=== PATIENT | male | born 1980 | race African-American/Black ===

== ENCOUNTER 2019-02-23 20:20 | Outpatient (CLI) | payer OTHER ==
[2019-02-23 12:02] LABS: BASOPHILS % (AUTO) 0.8 %; EOSINOPHILS # (AUTO) 0.2 10^3/uL (0.0-0.7); EOSINOPHILS % (AUTO) 4.1 %; HGB - HEMOGLOBIN 14.1 g/dL (14.0-18.0); LYMPHOCYTES # (AUTO) 1.8 10^3/uL (1.5-3.5); LYMPHOCYTES % (AUTO) 48.6 %; MEAN CORPUSCULAR HEMOGLOBIN 28.5 pg (27.0-31.0); MEAN CORPUSCULAR HGB CONC 32.8 g/dL (32.0-36.0); MEAN CORPUSCULAR VOLUME 86.9 fL (80.0-94.0); MEAN PLATELET VOLUME 12.1 fL (7.4-11.4); MONOCYTES # (AUTO) 0.4 10^3/uL (0.0-1.0); MONOCYTES % (AUTO) 10.2 %; NEUTROPHILS # (AUTO) 1.3 10^3/uL (1.5-6.6); PLT - PLATELET COUNT 115 10^3/uL (130-450); RED BLOOD COUNT 4.95 10^6/uL (4.70-6.10); RED CELL DISTRIBUTION WIDTH 13.4 % (12.0-15.0); WHITE BLOOD COUNT 3.6 x10^3/uL (4.8-10.8)
[2019-02-23 13:22] LABS: ALBUMIN 4.1 g/dL (3.2-5.5); ALBUMIN/GLOBULIN RATIO 1.4 (1.0-2.2); ALKALINE PHOSPHATASE 70 IU/L (42-121); ALT ALANINE AMINOTRANSFERASE 28 IU/L (10-60); AST ASPARTATE AMINOTRANSFERASE 19 IU/L (10-42); BILIRUBIN,TOTAL 0.5 mg/dL (0.2-1.0); BUN - BLOOD UREA NITROGEN 17 mg/dL (6-20); CALCIUM 9.4 mg/dL (8.5-10.3); CARBON DIOXIDE - CO2 29 mmol/L (21-32); CHLORIDE 106 mmol/L (101-111); CHOL/HDL RATIO 3.9 (<5.0); CHOLESTEROL 142 mg/dL; CREATININE 1.2 mg/dL (0.6-1.2); GFR - MDRD 83 (>89); GLUCOSE 97 mg/dL (70-100); HDL CHOLESTEROL 36 mg/dL; LDL CHOLESTEROL,CALCULATED 89 mg/dL; LDL/HDL RATIO 2.5 (<3.6); SODIUM 141 mmol/L (135-145); VLDL CHOLESTEROL 17 mg/dL
== END 2019-02-23 23:59 | disposition home or self-care (01) ==
LOC: LAB.N 20:20
PROVIDERS: ATTEND Nurse Practitioner Gerontology
DX: Z00.00 Encounter for general adult medical examination without abnormal findings (principal); K76.0 Fatty (change of) liver, not elsewhere classified
CPT/HCPCS: 36415; 80053; 80061; 83721; 84443; 85025

== ENCOUNTER 2019-07-10 16:29 | Outpatient (CLI) | payer OTHER ==
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
== END 2019-07-10 16:30 | disposition home or self-care (01) ==
LOC: SC 16:29
PROVIDERS: ATTEND Internal Medicine Pulmonary Disease
DX: G47.10 Hypersomnia, unspecified (principal); R06.83 Snoring; R53.83 Other fatigue; G47.8 Other sleep disorders; R06.81 Apnea, not elsewhere classified; G47.50 Parasomnia, unspecified; E66.9 Obesity, unspecified; Z68.33 Body mass index [BMI] 33.0-33.9, adult

== ENCOUNTER 2019-08-10 20:59 | Outpatient (CLI) | payer OTHER | END 2019-08-10 21:00 | disposition home or self-care (01) | LOC: SC 20:59 | PROVIDERS: ATTEND Internal Medicine Pulmonary Disease | DX: G47.33 Obstructive sleep apnea (adult) (pediatric) (principal); E66.9 Obesity, unspecified; Z68.35 Body mass index [BMI] 35.0-35.9, adult | CPT/HCPCS: 95810 ==

== ENCOUNTER 2019-08-16 13:21 | Outpatient (CLI) | payer OTHER ==
[2019-08-16 14:16] VITALS: BP 118/64
--- NOTE | 2019-08-16 14:16 | SLEEP CARE CONSULTATION ---
Information from patient questionnaire entered by Amaya Del Toro. I have reviewed and concur with the information entered by Amaya Del Toro. This document represents the service I personally performed and the decisions made by me, Allyson Rodriguez, RN, MSN, [employer]. History of Present Illness Service Date and Time: 08/16/2019 1321 Initial [place] Sleepiness Scale score: 17 (in 2020) Current Harper Sleepiness Scale score: 19 Additional HPI information: SUSI CONTRERAS returns for follow up and results of the recently performed polysomnography. I explained the pathophysiology behind obstructive sleep apnea. We then spent quite a bit of time discussing different treatment options. For mild obstructive sleep apnea, surgery and oral appliance are alternatives to nasal CPAP therapy but in moderate or severe cases, nasal CPAP is the most effective and reliable treatment. Because apnea is primarily in supine position, then positional management therapy could be effective. Methods discussed such as positioning with pillows, using a T-shirt with tennis balls in the back, and shown commercial products that have a pillow format on back to prevent supine sleep. I reviewed the impact of weight changes on sleep apnea and strongly recommended losing weight. After some discussion, the patient opted to go with the nasal CPAP therapy. Nasal autoCPAP set at [id number] will be ordered with rationale explained. A manual titration study will be ordered if unable to find optimal pressure with office adjustments. I explained how CPAP machine works with sample devices Respironics Dreamstation and Res24/7 Card [id number] and what to expect when using the machine. Using CPAP every night in order to get used to it was emphasized. Patient advised to put CPAP mask on before getting into bed so as not to fall asleep without CPAP. To assist acclimation to CPAP use, it could also be used for a short time during day while reading or watching TV. The patient was instructed to call the CPAP supplier to discuss any mechanical problem that may occur. If the mask given is uncomfortable or is difficult to keep on through the night even with adjustment, contact the CPAP supplier as many will replace with another mask style if notifi ed before 30 days. If snoring or perceives is not getting enough air or too much air from the machine, notify this office. [facility] patient education PAP tips reviewed and given to patient. Patient counseled not drink alcohol less than 4 hours before bedtime as it can increase snoring and apnea. Patient was cautioned about risks of drowsy driving until sleepiness symptoms resolve. [facility] patient education on snoring and sleep apnea given and reviewed. Sleep Study - Results Polysomnography/Home Sleep Study results: The quality of the study is good. The patient had normal sleep efficiency. Except for mild sleep fragmentation, the sleep architecture was normal. Respiratory monitoring showed mild obstructive sleep apneahypopnea (AHI = 14.7) associated with frequent arousals, oxyhemoglobin desaturation and moderate hypoxia (rochelle oxygen saturation of 78%). The respiratory events occurred more frequently during supine sleep (supine AHI = 28.2; non-supine = 9.92). Snore was loud in intensity. There was no significant periodic leg movement of sleep. Cardiac rhythm was normal sinus rhythm without significant arrhythmia. No abnormal behavior (parasomnia) observed during the night. Allergies and Home Medications Known drug allergies: Yes (keflex, hydrocodone ) Home medication list reviewed: No (no medications) Review of Systems Review of systems same as previous: Yes Physical Exam Blood Pressure: 118/64 Cuff size: large Heart Rate: 77 O2 Saturation: 95 Height: 6 ft 2 in Weight: 280 lb Body Mass Index: 35.9 BMI Classification: Obese Impression and Plan 1. Obstructive Sleep Apnea-Hypopnea Syndrome, mild, with lowest oxygen saturation of 78%. Obviously this is the cause of the patients symptoms of unrefreshed sleep, and excessive daytime sleepiness. As mentioned above, the patient will be started on nasal autoCPAP therapy with pressure set at 4-15 cmH2 O. A manual titration study will be completed if unable to find optimal treatment pressure with office adjustments. Compliance guidelines also reviewed. A copy of compliance guidelines will be given for reference at check out. Because the apnea is more severe supine, I instructed to avoid sleeping supine using pillow positioning until able to start CPAP use. * Nasal auto CPAP therapy, pressure at 4-15 cm H2O. * Attempt to lose weight. * Avoid alcohol consumption near bedtime. * Avoid supine sleep until using CPAP. * The patient is again cautioned about driving until sleepiness completely resolves. * Return one month after CPAP obtained. I will assess response to therapy and compliance at that time. Visit Type: In Office Time Spent with Patient (minutes): 35 Provider Statement: I spent 100% of the Face to Face Visit with the patient with greater than 50% spent counseling the patient and coordination of care.
== END 2019-08-16 13:22 | disposition home or self-care (01) ==
LOC: SC 13:21
PROVIDERS: ATTEND Nurse Practitioner Family
DX: G47.33 Obstructive sleep apnea (adult) (pediatric) (principal); E66.9 Obesity, unspecified; Z68.35 Body mass index [BMI] 35.0-35.9, adult
CPT/HCPCS: 99212; 99214

== ENCOUNTER 2019-09-26 08:00 | Outpatient (CLI) | payer OTHER ==
[2019-09-26 18:59] LABS: CALCIUM 9.4 mg/dL (8.5-10.3); CREATININE 1.1 mg/dL (0.6-1.2); EOSINOPHILS # (AUTO) 0.2 10^3/uL (0.0-0.7); EOSINOPHILS % (AUTO) 3.7 %; HGB - HEMOGLOBIN 14.1 g/dL (14.0-18.0); LYMPHOCYTES % (AUTO) 49.3 %; MEAN CORPUSCULAR HEMOGLOBIN 29.1 pg (27.0-31.0); MEAN CORPUSCULAR HGB CONC 33.7 g/dL (32.0-36.0); MEAN CORPUSCULAR VOLUME 86.4 fL (80.0-94.0); MEAN PLATELET VOLUME 13.6 fL (7.4-11.4); MONOCYTES # (AUTO) 0.4 10^3/uL (0.0-1.0); MONOCYTES % (AUTO) 9.4 %; NEUTROPHILS # (AUTO) 1.5 10^3/uL (1.5-6.6); NEUTROPHILS % (AUTO) 36.6 %; PLT - PLATELET COUNT 129 10^3/uL (130-450); RED BLOOD COUNT 4.85 10^6/uL (4.70-6.10); RED CELL DISTRIBUTION WIDTH 13.7 % (12.0-15.0); WHITE BLOOD COUNT 4.1 x10^3/uL (4.8-10.8)
== END 2019-09-26 23:59 | disposition home or self-care (01) ==
LOC: LAB.WCP 08:00
PROVIDERS: ATTEND Family Medicine
DX: D72.819 Decreased white blood cell count, unspecified (principal); R94.4 Abnormal results of kidney function studies
CPT/HCPCS: 36415; 80048; 85025

== ENCOUNTER 2019-10-05 22:43 | Outpatient (CLI) | payer BC, OTHER ==
--- NOTE | 2019-10-06 11:01 | Ultrasound Report ---
PROCEDURE: Duplex Ext Veins Left INDICATIONS: REPETITIVE STRAIN INJURY OF LEFT ARM TECHNIQUE: Real-time imaging, as well as color and pulse Doppler interrogation, were performed of the lower extr emity deep veins from the inguinal ligament to the popliteal fossa. COMPARISON: None. FINDINGS: The deep veins are normally compressible, and free of intraluminal thrombus. Color and pu lse Doppler demonstrate normal phasic intraluminal flow. There is normal augmentation response to di stal compression maneuver. IMPRESSION: No findings of deep venous thrombosis are seen. Note: No significant discrepancy from the preliminary report. Reviewed by: David Cochran MD on 10/06/2019 10:00 AM [facility] Approved by: David Cochran MD on 10/06/2019 10:00 AM [facility] Station ID: [id number]
== END 2019-10-05 22:44 | disposition home or self-care (01) ==
LOC: DI 22:43
PROVIDERS: ATTEND Family Medicine
DX: M70.922 Unspecified soft tissue disorder related to use, overuse and pressure, left upper arm (principal)

== ENCOUNTER 2019-11-16 17:14 | Outpatient (CLI) | payer BC, OTHER ==
--- NOTE | 2019-11-17 18:16 | Ultrasound Report ---
PROCEDURE: Pelvic Limited or F/U INDICATIONS: HX OF INGUINAL HERNIA TECHNIQUE: Real-time transabdominal scanning was performed of the groin with and without Valsalva maneuver, with image documentation. COMPARISON: None. FINDINGS: On the left side, no hernia is appreciated. Normal-appearing lymph nodes are incidentally captured in the image field. No solid mass or abnormal fluid collection on the left. On the right side, a fat-containing sliding reducible hernia is present. Fascial defect appears to me asure up to at least 5 mm. IMPRESSION: Fat-containing reducible right inguinal hernia. No evident hernia on the left. Reviewed by: Josh Lopez on 11/17/2019 5:15 PM [facility] Approved by: Josh Lopez on 11/17/2019 5:15 PM [facility] Station ID: [id number]
== END 2019-11-16 17:15 | disposition home or self-care (01) ==
LOC: DI 17:14
PROVIDERS: ATTEND Nurse Practitioner Family
DX: K40.90 Unilateral inguinal hernia, without obstruction or gangrene, not specified as recurrent (principal)
CPT/HCPCS: 76857

== ENCOUNTER 2019-11-22 15:58 | Outpatient (CLI) | payer OTHER, BC ==
[2019-11-22 17:07] VITALS: BP 130/80
--- NOTE | 2019-11-22 17:07 | SLEEP CARE CONSULTATION ---
Information from patient questionnaire entered by Amaya Del Toro. I have reviewed and concur with the information entered by Amaya Del Toro. This document represents the service I personally performed and the decisions made by me, Allyson Rodriguez, RN, MSN, [employer]END[employer]. History of Present Illness Service Date and Time: 11/22/2019 1558 Previous diagnosis: Mild, Obstructive Sleep Apnea-Hypopnea Syndrome AHI: 14.7 (in 2019) Reason for follow up: first compliance Equipment type: CPAP [facility] Mask style: Nasal pillows Backup mask available: Yes (spare mask ) Last cushion change: no supplies since set up Prior sleep studies: Yes Year and Where: 2000 - [place], [place] and 2019 [facility] Sleep Sleep Study - Results Prior sleep studies: Yes Year and Where: 2000 - [place], [place] CPAP Compliance Data - Data Reviewed with Patient Average duration of nightly device use: 4.8 Compliance rate %: 70 Current pressure setting (cmH2O): 4-20 Humidity settin Heated hose setting: no Average residual AHI: 0.5 Average large leak: zero Subjective Patient concerns: reports: condensation in mask/hose (gurlging in hose after he adjusted his humdity to reduce nasal dryness so reduced humidity and still condensation), nasal congestion (just residual from recent cold ), dry mouth, nose, throat (some initial dryness of nostrils and placed some coconut oil in nostrils with some relief ), other (falling asleep watching TV in bed about 4 times / waking with mask off face a few times. f ). denies: aerophagia, mask discomfort, air blowing in eyes, mask leak noise, epistaxis Observed to snore while using device: No Current pressure setting perceived as: comfortable On therapy, patient: reports: sleeping better, awakening more refreshed (but is tired during the day - patient does not allow for enough sleep most days due to activities of life). denies: drowsiness while driving Initial [place] Sleepiness Scale score: 17 (in 2019) Current [place] Sleepiness Scale score: 18 Allergies and Home Medications Known drug allergies: No Home medication list reviewed: No (no medications) Review of Systems Review of systems same as previous: No (umbilical hernia ) Physical Exam Blood Pressure: 130/80 Cuff size: long Heart Rate: 79 O2 Saturation: 98 Height: 6 ft 2 in Weight: 275 lb 12.8 oz Weight change since last visit: lost 4.2 pounds Body Mass Index: 35.4 BMI Classification: Obese Impression and Plan 1. Obstructive Sleep Apnea-Hypopnea Syndrome, moderate, with good treatment compliance and good apnea control. On CPAP therapy, the patient has better sleep quality and is more refreshed but is fatigued during the day. Further discussion reflected he is not getting sufficient sleep most days due to timing of evening activities. In addition, he has had a few nights where he fell asleep without CPAP. To prevent falling asleep without CPAP while watching TV in bed, he is either to set his phone alarm for his bedtime or he can watch his TV with mask on. Insufficient sleep. Patient averages 4.5 hours of sleep nightly . Most people require 7-9 hours of sleep for optimal mental and physical function. Less than 5-6 hours of sleep consistently can contribute to health risks and mortality. Thus patient is advised to strive for a minimum of 7 hours of sleep. Methods discussed how patient can achieve within their lifestyle and advised to discuss with his spouse. He is also advised of importance of a regular sleep schedule and relaxing bedtime ritual before bed as shown in [facility] How to sleep better pamphlet given. Nasal dryness and nasal congestion can be reduced with increasing the CPAP humidity as shown on sample device and the heated hose can be increased if condensation. In addition, I gave the patient a few samples of Whit Ease nasal cream to be used 4 times a day for 7-10 days and then as needed. Patient has lost weight. Currently patients BMI is 35.9 obesity class . Obesity increases the risk of apnea, CPAP pressure requirements and overall health risks especially cardiovascular and diabetes. Thus patient is advised to continue to lose weight. Weight loss can be done with reducing portion size, reducing refined foods and balancing content with vegetables, fruit and protein. In addition tracking food intake will allow awareness of how to modify diet to achieve weight loss goals. Also eating more slowly will allow more awareness of food intake and enjoyment of food while assisting patient to modify intake at each meal. A diet consultation can be helpful in achieving optimal weight loss goals. The BMI chart was reviewed. The patient would like to reduce to 60 pounds bringing their BMI down to about 27. Patient encouraged to discuss their weight loss goals with their PCP and consider a referral to a hydramatic mechanic. The patient's CPAP pressure range should accommodate some weight loss. Symptoms to report for additional pressure adjustment discussed. Patient's apnea severity and rationale for treatment to reduce apnea, improve sleep quality and reduce cardiovascular and cerebrovascular events was reviewed. For impending surgery, patient advised to take his CPAP for use post operatively. Since patient has more severe apnea in supine position, patient advised to avoid supine sleep with pillow positioning if unable to use CPAP while ill or if without electricity to reduce apnea risk. * Changeauto CPAP pressure to 4-12 cmH2O * Implement methods to reduce nasal dryness * Strive for more sleep * cautioned about risks of drowsy driving until sleepiness symptoms resolve * Notify me if snoring with mask or feeling that the pressure is too much or too little * Attempt to lose weight * Call this office if any problems using CPAP * Return for follow up in 3 months , or sooner if concerns arise Counseling Topics: Weight loss health impact, Discuss weight with PCP Visit Type: In Office Time Spent with Patient (minutes): 45 Provider Statement: I spent 100% of the Face to Face Visit with the patient with greater than 50% spent counseling the patient and coordination of care.
== END 2019-11-22 15:59 | disposition home or self-care (01) ==
LOC: SC 15:58
PROVIDERS: ATTEND Nurse Practitioner Family
DX: G47.33 Obstructive sleep apnea (adult) (pediatric) (principal); E66.9 Obesity, unspecified; Z68.35 Body mass index [BMI] 35.0-35.9, adult
CPT/HCPCS: 99212; 99215

== ENCOUNTER 2020-02-21 15:31 | Outpatient (CLI) | payer OTHER ==
--- NOTE | 2020-02-21 16:16 | SLEEP CARE CONSULTATION ---
Information from patient questionnaire entered by Dimitri Carter. I have reviewed and concur with the information entered by Dimitri Carter. This document represents the service I personally performed and the decisions made by me, Ramona Chavez ARNP. History of Present Illness Service Date and Time: 02/21/2020 1531 Previous diagnosis: Mild, Obstructive Sleep Apnea-Hypopnea Syndrome AHI: 14.7 Reason for follow up: three month (Followup - pressure change) Equipment type: CPAP [facility] getting [facility] but nothing recently; needs to call) Mask style: Nasal pillows Backup mask available: No (keep mask when replaced for a back up) Last cushion change: 1 month Prior sleep studies: Yes Year and Where: 2019 [facility] and 2000 - [facility] additional information: SUSI CONTRERAS was diagnosed to have mild, AHI 14.7, obstructive sleep apnea- hypopnea syndrome and returned today for CPAP therapy three month pressure change follow-up. CPAP Compliance Data - Data Reviewed with Patient Average duration of nightly device use: 4 hours 41 minutes Compliance rate %: 57 Current pressure setting (cmH2O): 4-20 Average residual AHI: 0.4 Central apnea: 0.1 Obstructive apnea: 0.2 Average large leak: 6.3 L/min Subjective Missed days of use due to: reports: other (changes of work schedule) Patient concerns: reports: mask discomfort, dry mouth, nose, throat (dry throat). denies: aerophagia, air blowing in eyes, mask leak noise, condensation in mask/hose, nasal congestion, epistaxis, other Observed to snore while using device: No Current pressure setting perceived as: comfortable On therapy, patient: reports: sleeping better, awakening more refreshed, being more awake and alert during the day (still gets sleepiness throughout the day but averages under 5 hours of sleep a night), more rested overall, drowsiness while driving (no getting 7-9 hours of sleep) Initial [place] Sleepiness Scale score: 17 (in 2019) Current [place] Sleepiness Scale score: 20 Allergies and Home Medications Drug allergies reviewed: Yes (hydrocodone, Keflex) Home medication list reviewed: Yes (no changes) Review of Systems Review of systems same as previous: Yes (no changes) Physical Exam Heart Rate: 68 O2 Saturation: 97 Height: 6 ft 2 in Weight: 282 lb Body Mass Index: 36.1 BMI Classification: Obese Impression and Plan 1. Obstructive Sleep Apnea-Hypopnea Syndrome, mild, with fair treatment compliance and excellent apnea control. On CPAP therapy, the patient has better sleep quality but he continues to be very sleepy during the daytime since he is averaging less than 5 hours nightly. He does get more sleep on the weekends but he is not able to get more than 4.5 to 5 hours of sleep on work days. He has been trying to change his nightly routine to be able to get better sleep. He starts getting ready to sleep about 10 PM but does not go to sleep until midnight. I advised him to try to begin getting ready for sleep earlier in the night. He can start in 15 minute increments to try to get to sleep sooner. He is also to look at ways to reduce time needed to get to the bed. He states he will try this and voiced understanding of importance of getting more sleep as well as quality sleep to reduce health and safety risks. He also still has some throat dryness. He has not been able to obtain a heated hose and must keep his humidity setting down or he has problems with condensation. [facility] the [facility] so he may increase his humidity and reduce oral dryness. Oral dryness can be reduced by adjusting humidity setting higher or heated hose lower or by adjusting both settings. Patient advised that chronic oral dryness can affect dental health. At his last visit, his pressure was supposed to get changed but the machine was not adjusted at that time. I will write for another adjustment to 4-10 cmH2O on his APAP to reflect the pressures he is currently using with excellent control of his apnea. Patient's apnea severity and rationale for treatment to reduce apnea, improve sleep quality and reduce cardiovascular and cerebrovascular events was reviewed. * Change autoCPAP pressure to 4-10 cmH2O * Notify me if snoring with mask or feeling that the pressure is too much or too little * Call this office if any problems using CPAP * Return for follow up in 1-2 months, or sooner if concerns arise Counseling Topics: Spare mask Visit Type: In Office Time Spent with Patient (minutes): 28 Provider Statement: I spent 100% of the Face to Face Visit with the patient with greater than 50% spent counseling the patient and coordination of care.
== END 2020-02-21 15:32 | disposition home or self-care (01) ==
LOC: SC 15:31
PROVIDERS: ATTEND Nurse Practitioner Family
DX: G47.33 Obstructive sleep apnea (adult) (pediatric) (principal); E66.9 Obesity, unspecified; Z68.36 Body mass index [BMI] 36.0-36.9, adult
CPT/HCPCS: 99212; 99213

== ENCOUNTER 2020-06-27 13:22 | Outpatient (CLI) | payer OTHER ==
--- NOTE | 2020-06-27 13:54 | SLEEP CARE CONSULTATION ---
Information from patient questionnaire entered by Amaya Del Toro. I have reviewed and concur with the information entered by Amaya Del Toro. This document represents the service I personally performed and the decisions made by , Ramona Chavez ARNP. History of Present Illness Service Date and Time: 06/27/2020 1322 Previous diagnosis: Mild, Obstructive Sleep Apnea-Hypopnea Syndrome AHI: 14.7 (in 2019) Reason for follow up: other (4 month with pressure change) Equipment type: CPAP Equipment obtained from: Other (ID; hasn't got any new supplies yet, will call them) Mask style: Nasal pillows Backup mask available: Yes (other mask) Last cushion change: several months Prior sleep studies: Yes Year and Where: 2019 - [facility]; [address] [place], [place] Type of Sleep Study: Polysomnography HPI additional information: SUSI CONTRERAS was diagnosed to have mild, AHI 14.7, obstructive sleep apnea- hypopnea syndrome and returned today for CPAP therapy 4 month pressure change follow-up. CPAP Compliance Data - Data Reviewed with Patient Average duration of nightly device use: 4 hr Compliance rate %: 37 (90 days) Current pressure setting (cmH2O): 4-10 Average residual AHI: 0.4 Subjective Missed days of use due to: reports: other (falling asleep on the couch) Patient concerns: reports: dry mouth, nose, throat. denies: aerophagia, mask discomfort, air blowing in eyes, mask leak noise, condensation in mask/hose, nasal congestion, epistaxis, other Observed to snore while using device: No Current pressure setting perceived as: comfortable On therapy, patient: reports: sleeping better, awakening more refreshed, being more awake and alert during the day, more rested overall. denies: drowsiness while driving Initial [place] Sleepiness Scale score: 17 (in 2020) Current [place] Sleepiness Scale score: 18 Allergies and Home Medications Home medication list reviewed: Yes (no changes) Review of Systems Review of systems same as previous: Yes (no changes) Physical Exam Heart Rate: 64 O2 Saturation: 98 Height: 6 ft 2 in Weight: 290 lb Body Mass Index: 37.2 BMI Classification: Obese Impression and Plan 1. Obstructive Sleep Apnea-Hypopnea Syndrome, mild, with poor treatment compliance and good apnea control. On CPAP therapy, the patient has better sleep quality and is more rested overall. He has been working days and finding it hard to get more hours of sleep. He will be changing to nights at the first of July and he thinks he will be able to get more sleep and use the CPAP more. He has fallen asleep on the couch too while watching TV. Compliance guidelines reviewed for insurance coverage. Patient was counseled on the difference between meeting compliance and optimal use of CPAP. Optimal use of CPAP is use of CPAP with all sleep to obtain maximum benefit of treatment. To prevent falling asleep without CPAP, patient advised to set a bedtime alarm on their phone for use while watching TV on couch or in bed. Patient was compliant at first compliant visit but has not reached it since. I advised him to continue to try to get more sleep. He has still been having some mouth dryness with his humidity up at 5. He is still waiting to get the heated hose so he may increase the humidity some more because he gets condensation in tubing if he goes up higher. I will have hime come in to recheck compliance in about 3 months. Patient's apnea severity and rationale for treatment to reduce apnea, improve sleep quality and reduce cardiovascular and cerebrovascular events was reviewed. * Continue auto CPAP pressure at 4-10 cmH2O * Notify me if snoring with mask or feeling that the pressure is too much or too little * Attempt to lose weight * Call this office if any problems using CPAP * Return for follow up in 3 months, or sooner if concerns arise Counseling Topics: Spare mask, Weight loss health impact Visit Type: In Office Time Spent with Patient (minutes): 23 Provider Statement: I spent 100% of the Face to Face Visit with the patient with greater than 50% spent counseling the patient and coordination of care.
== END 2020-06-27 13:23 | disposition home or self-care (01) ==
LOC: SC 13:22
PROVIDERS: ATTEND Nurse Practitioner Family
DX: G47.33 Obstructive sleep apnea (adult) (pediatric) (principal); E66.9 Obesity, unspecified; Z68.37 Body mass index [BMI] 37.0-37.9, adult
CPT/HCPCS: 99212; 99213

== ENCOUNTER 2020-10-09 13:52 | Outpatient (CLI) | payer OTHER ==
--- NOTE | 2020-10-09 14:18 | SLEEP CARE CONSULTATION ---
Information from patient questionnaire entered by Amaya Del Toro. I have reviewed and concur with the information entered by Amaya Del Toro. This document represents the service I personally performed and the decisions made by me, Ramona Chavez ARNP. History of Present Illness Service Date and Time: 10/09/2020 1352 Previous diagnosis: Mild, Obstructive Sleep Apnea-Hypopnea Syndrome AHI: 14.7 (in 2019) Reason for follow up: three month Equipment type: CPAP Equipment obtained [facility]: [facility]; will need to call to get them) Mask style: Nasal pillows Backup mask available: Yes (old mask) Last cushion change: 2 months ago Prior sleep studies: Yes Year and Where: 2019 - [facility]; [address] - [place], [place] Type of Sleep Study: Polysomnography HPI additional information: SUSI CONTRERAS was diagnosed to have mild, AHI 14.7, obstructive sleep apnea- hypopnea syndrome and returned today for CPAP therapy three month follow-up. CPAP Compliance Data - Data Reviewed with Patient Average duration of nightly device use: 4 hr Compliance rate %: 46 (90 days) Current pressure setting (cmH2O): 4-10 Average residual AHI: 0.8 Subjective Missed days of use due to: reports: other (dozed off before putting on the mask) Patient concerns: reports: mask leak noise (just a little bit, better with adjustment), other (mask straps are worn and stretched out). denies: aerophagia, mask discomfort, air blowing in eyes, condensation in mask/hose, nasal congestion, dry mouth, nose, throat, epistaxis Observed to snore while using device: No Current pressure setting perceived as: comfortable On therapy, patient: reports: sleeping better, awakening more refreshed, being more awake and alert during the day, more rested overall. denies: drowsiness while driving Initial [place] Sleepiness Scale score: 17 (in 2020) Current [place] Sleepiness Scale score: 18 Allergies and Home Medications Home medication list reviewed: Yes (no changes) Review of Systems Review of systems same as previous: Yes (no changes) Physical Exam Heart Rate: 71 O2 Saturation: 97 Height: 6 ft 2 in Weight: 281 lb Body Mass Index: 36.1 BMI Classification: Obese Impression and Plan 1. Obstructive Sleep Apnea-Hypopnea Syndrome, mild, with poor treatment compliance and excellent apnea control. On CPAP therapy, the patient has better sleep quality and is more rested overall. He is sleeping longer with the mask on but still having difficulty with compliance. He will wake up and find he forgot to put the mask on. He is seeing benefit and intends to continue using the CPAP machine. He states his headgear is getting very stretched out. [facility] but he has not received any. I advised him to reach out again and to keep calling until he receives his supplies since this is affecting his CPAP use/treatment. He voice understanding and agreement with plan. I will have him come back in a couple months to recheck his compliance. Patient's apnea severity and rationale for treatment to reduce apnea, improve sleep quality and reduce cardiovascular and cerebrovascular events was reviewed. Patient was encouraged to try to lose weight to reduce apneas and improve overall health. * Continue auto CPAP pressure at 4-10 cmH2O * Contact DME for supplies * Notify me if snoring with mask or feeling that the pressure is too much or too little * Attempt to lose weight * Call this office if any problems using CPAP * Return for follow up in 3 months, or sooner if concerns arise Counseling Topics: Spare mask, Weight loss health impact Visit Type: In Office Time Spent with Patient (minutes): 19 Provider Statement: I spent 100% of the Face to Face Visit with the patient with greater than 50% spent counseling the patient and coordination of care.
== END 2020-10-09 13:53 | disposition home or self-care (01) ==
LOC: SC 13:52
PROVIDERS: ATTEND Nurse Practitioner Family
DX: G47.33 Obstructive sleep apnea (adult) (pediatric) (principal); E66.9 Obesity, unspecified; Z68.36 Body mass index [BMI] 36.0-36.9, adult
CPT/HCPCS: 99212

== ENCOUNTER 2021-04-17 08:46 | Outpatient (CLI) | payer OTHER ==
[2021-04-17 09:38] VITALS: BP 133/87
--- NOTE | 2021-04-17 09:38 | SLEEP CARE CONSULTATION ---
Information from patient questionnaire entered by Adore Cuenca MA. I have reviewed and concur with the information entered by Adore Cuenca MA. This document represents the service I personally performed and the decisions made by , Ramona Chavez ARNP. History of Present Illness Service Date and Time: 04/17/2021 0846 Previous diagnosis: Mild, Obstructive Sleep Apnea-Hypopnea Syndrome AHI: 14.7 (in 2019) Reason for follow up: six month Equipment type: CPAP Equipment obtained [facility]: [facility]) Mask style: Nasal pillows Mask brand: Resmed (RESMED P10) Backup mask available: Yes (other mask) Last cushion change: 1 month Prior sleep studies: Yes Year and Where: 2019 - [facility]; [address] - [place], [place] Type of Sleep Study: Polysomnography HPI additional information: SUSI CONTRERAS was diagnosed to have mild, AHI 14.7, obstructive sleep apnea- hypopnea syndrome and returned today for CPAP therapy six month follow-up. Sleep Study - Results Type of Sleep Study: Polysomnography Prior sleep studies: Yes Year and Where: 2019 - [facility]; [address] - [place], [place] CPAP Compliance Data - Data Reviewed with Patient Average duration of nightly device use: 3 HOURS 56 MINUTES Compliance rate %: 42 Current pressure setting (cmH2O): 4-10 Average residual AHI: 0.7 Central apnea: .1 Obstructive apnea: .3 Average large leak: 10.6 On Oxygen: Yes Subjective Missed days of use due to: reports: other (FELL ASLEEP BEFORE PUTING IT ON; schedule when from nights to days) Patient concerns: reports: dry mouth, nose, throat (not able to use humidifier, needs distilled water). denies: aerophagia, mask discomfort, air blowing in eyes, mask leak noise, condensation in mask/hose, nasal congestion, epistaxis Observed to snore while using device: No Current pressure setting perceived as: comfortable On therapy, patient: reports: sleeping better, awakening more refreshed, being more awake and alert during the day, more rested overall. denies: drowsiness while driving Initial [place] Sleepiness Scale score: 17 (in 2019) Current [place] Sleepiness Scale score: 19 (2021) Allergies and Home Medications Known drug allergies: Yes (KEFLEX , HYDROCODIENE) Drug allergies reviewed: Yes Home medication list reviewed: Yes (no changes) Review of Systems Review of systems same as previous: Yes (no change) Physical Exam Vital signs obtained and entered by: LOCO BONNER Blood Pressure: 133/87 (PULSE 71, RIGHT, RSP 18,) Cuff size: wrist Heart Rate: 67 O2 Saturation: 97 (PAPER MASK) Height: 6 ft 2 in Weight: 278 lb (CLOTHES AND SHOE) Body Mass Index: 35.6 BMI Classification: Obese Impression and Plan 1. Obstructive Sleep Apnea-Hypopnea Syndrome, mild, with poor treatment compliance and excellent apnea control. On CPAP therapy, the patient has better sleep quality and is more rested overall. Patient states he was finally able to get some supplies from the [place]. Susi will fall asleep without his mask on he is just minutes from getting 4 hours every night. He will also get busy doing things around the house and be late to get to bed. He does manage to put his mask on 85% of the time. We talked about setting an alarm on his phone to remind him that he needs to go to bed and this will also wake him up if he has fallen asleep to put on his mask. He voiced understanding and agreement. He is not having any issues with his mask and has significant improvement of his sleep apnea. Patient's apnea severity and rationale for treatment to reduce apnea, improve sleep quality and reduce cardiovascular and cerebrovascular events was reviewed. I was going to have patient follow-up in 1 to 2 months to recheck his compliance but he is moving to [place] and leaves next week. I advised him to get set up with a sleep provider there as soon as he can to follow-up on his compliance. * Continue auto CPAP pressure at 4-10 cmH2O * Notify me if snoring with mask or feeling that the pressure is too much or too little * Attempt to lose weight * Call this office if any problems using CPAP * Return for follow up in 1-2 months, or sooner if concerns arise Counseling Topics: Spare mask, Weight loss health impact Visit Type: In Office Time Spent with Patient (minutes): 21 Provider Statement: I spent 100% of the Face to Face Visit with the patient with greater than 50% spent counseling the patient and coordination of care.
== END 2021-04-17 08:47 | disposition home or self-care (01) ==
LOC: SC 08:46
PROVIDERS: ATTEND Nurse Practitioner Family
DX: G47.33 Obstructive sleep apnea (adult) (pediatric) (principal); E66.9 Obesity, unspecified; Z68.35 Body mass index [BMI] 35.0-35.9, adult
CPT/HCPCS: 99212; 99213

== ENCOUNTER 2023-03-07 16:17 | Outpatient (CLI) | payer OTHER ==
--- NOTE | 2023-03-07 17:11 | Ultrasound Report ---
PROCEDURE: Abdomen Limited INDICATIONS: NODULE ON ABDOMEN TECHNIQUE: Real-time focused scanning was performed of the abdomen, with image documentation. COMPARISONS: None. FINDINGS: Sonographic images of the right abdomen demonstrate an avascular focus of mildly increased echogenici ty within the subcutaneous fat. It measures approximately 8 mm. IMPRESSION: Focus of increased echogenicity within the subcutaneous fat suspicious for lipoma. Reviewed by: Carol Graf MD on 03/07/2023 5:10 PM PST Approved by: Carol Graf MD on 03/07/2023 5:10 PM PST Station ID: [id number]
== END 2023-03-07 16:18 | disposition home or self-care (01) ==
LOC: DI 16:17
PROVIDERS: ATTEND Registered Nurse
DX: R19.00 Intra-abdominal and pelvic swelling, mass and lump, unspecified site (principal)

== ENCOUNTER 2023-04-01 08:32 | Outpatient (CLI) | payer OTHER ==
--- NOTE | 2023-04-01 10:03 | Ultrasound Report ---
PROCEDURE: Abdomen Complete INDICATIONS: ELEVATED LIVER FUNCTION TEST TECHNIQUE: Real-time scanning was performed of the abdominal and retroperitoneal organs, with image documentatio n. COMPARISON: None. FINDINGS: Liver: Liver is normal in size with homogeneous increased echogenicity, higher than the adjacent rig ht kidney]. Gallbladder: Unremarkable. Gallbladder wall thickness of 2 mm Biliary ducts: Intrahepatic bile ducts are non-dilated. Extrahepatic bile duct caliber measures 4 m m. Normal is 6-7 mm or less in diameter, or 10 mm or less post-cholecystectomy. Pancreas: Not visualized due to shadowing Spleen: Spleen is normal in size and homogeneous in echotexture measuring 11.3 cm in length. Kidneys: Kidneys are normal in size and echotexture. Right kidney measures 11.5 cm long; left kidne y measures 13.37 cm long. No hydronephrosis or nephrolithiasis. No solid masses. No complex renal c ystic lesions which require follow-up. Aorta: Visualized aorta is normal in caliber at less than 3 cm. Iliacs: Proximal common iliac arteries are normal in caliber at less than 2.5 cm. IVC: Intrahepatic inferior vena cava is patent. Miscellaneous: No free abdominal fluid. IMPRESSION: Fatty liver Nonvisualized pancreas Reviewed by: Parviz Ovalles MD on 04/01/2023 10:02 AM PST Approved by: Parviz Ovalles MD on 04/01/2023 10:02 AM PST Station ID: [id number]
== END 2023-04-01 08:33 | disposition home or self-care (01) ==
LOC: DI 08:32
PROVIDERS: ATTEND Registered Nurse
DX: R94.5 Abnormal results of liver function studies (principal); K76.0 Fatty (change of) liver, not elsewhere classified

== ENCOUNTER 2023-04-22 14:08 | Outpatient (CLI) | payer OTHER ==
--- NOTE | 2023-04-22 14:29 | Sleep Patient Instructions ---
Sleep Center Visit Summary - Patient Visit Information Reason for Visit: Annual follow-up - Patient Instructions Additional Instructions: You will continue with CPAP therapy with pressure set at 4-10 cmH2O. A supply prescription will be updated with your DME. We encourage you to continue to try to lose weight. Please follow up with the sleep care office in 1 year. - Clinic Information Contact: [facility] [address] [place] [address] [email or web address] T: [phone]
--- NOTE | 2023-04-22 14:36 | SLEEP CARE CONSULTATION ---
Information from patient questionnaire entered by Marion Rivers. I have reviewed and concur with the information entered by Marion Rivers. This document represents the service I personally performed and the decisions made by me, Ramona Chavez ARNP. History of Present Illness Service Date and Time: 04/22/2023 1408 Previous diagnosis: Mild, Obstructive Sleep Apnea-Hypopnea Syndrome AHI: 14.7 (in 2019) Reason for follow up: annual (LAST SEEN 04/2021) Equipment type: CPAP (RESMED Airsense 10, s/u 09/2019, NEED MACHIINE) Equipment obtained from: Other ([place]; getting supplies) Mask style: Nasal pillows Mask brand: Resmed (AirFit P10, large cushion) Backup mask available: Yes (old mask) Last cushion change: 1 month or so Prior sleep studies: Yes Year and Where: 2019 [email or web address]; [address] [facility] [place], [place] Type of Sleep Study: Polysomnography HPI additional information: SUSI CONTRERAS was diagnosed to have mild, AHI 14.7, obstructive sleep apnea- hypopnea syndrome and returned today for CPAP therapy annual follow-up. Sleep Study - Results Type of Sleep Study: Polysomnography Prior sleep studies: Yes Year and Where: [email or web address]; [address] [facility] [place], [place] CPAP Compliance Data - Data Reviewed with Patient Average duration of nightly device use: 5 hours 21 mins Compliance rate %: 69 (358/365 days used) Current pressure setting (cmH2O): 4-10 Average residual AHI: 0.5 Central apnea: 0 Obstructive apnea: 0.3 Hypopnea: 0.2 Average large leak: 1.3 L/min Subjective Missed days of use due to: reports: other (falling asleep on the couch) Patient concerns: reports: mask discomfort (from pillow when first putting on), dry mouth, nose, throat (dry mouth, forgets water chamber sometimes). denies: aerophagia, air blowing in eyes, mask leak noise, condensation in mask/hose, nasal congestion, epistaxis Observed to snore while using device: No Current pressure setting perceived as: comfortable On therapy, patient: reports: sleeping better, awakening more refreshed, being more awake and alert during the day, more rested overall. denies: drowsiness while driving Initial [place] Sleepiness Scale score: 17 (in 2019) Current [place] Sleepiness Scale score: 16 (04/22/23) Allergies and Home Medications Known drug allergies: Yes (cephalexin, hydrocodone, silver, nickel) Drug allergies reviewed: Yes Home medication list reviewed: Yes (as listed) Allergy and home medication list: Home Medications Medication Instructions Recorded Confirmed Last Taken Type Cholecalciferol (Vitamin D3) See Rx Instructions .ROUTE .COMPLEX 04/22/23 04/22/23 Unknown History [Vitamin D3] Famotidine [Acid [employer] Supervisor] See Rx Instructions .ROUTE .COMPLEX 04/22/23 04/22/23 Unknown History Multivitamin See Rx Instructions .ROUTE .COMPLEX 04/22/23 04/22/23 Unknown History buPROPion [Wellbutrin Sr] See Rx Instructions .ROUTE .COMPLEX 04/22/23 04/22/23 Unknown History Review of Systems Review of systems same as previous: No (arthritis in back) Physical Exam Vital signs obtained and entered by: MARION Mendoza MA Blood Pressure: 146/84 (RIGHT ARM) Cuff size: regular Heart Rate: 70 O2 Saturation: 98 Height: 6 ft 2 in Weight: 286 lb 9.6 oz Body Mass Index: 36.8 BMI Classification: Obese Impression and Plan 1. Obstructive Sleep Apnea-Hypopnea Syndrome, mild, with good treatment compliance and good apnea control. On CPAP therapy, the patient has better sleep quality and is more rested overall. He says he will fall asleep on the couch and forget to use his mask for full night. To prevent falling asleep without CPAP, patient advised to set a bedtime alarm on their phone for use while watching TV on couch or in bed. He voiced understanding. He has a little discomfort with his nasal pillows mask until after it softens up a little bit but he feels overall it fits well. He is using a ResMed P10, large size cushion. Patient had moved away to [place] after our last visit with him but things did not work out and he has moved back here to [facility]. Patient has significant improvement of their sleep apnea and is satisfied with current CPAP therapy. Patient's apnea severity and rationale for treatment to reduce apnea, improve sleep quality and reduce cardiovascular and cerebrovascular events was reviewed. 2. Obesity, unspecified. Currently patients BMI is 36.8. Obesity increases the risk of apnea, CPAP pressure requirements and overall health risks especially c ardiovascular and diabetes. Thus patient is advised to lose weight. * Continue auto CPAP pressure at 4-10 cmH2O * Update supply prescription * Notify me if snoring with mask or feeling that the pressure is too much or too little * Attempt to lose weight * Call this office if any problems using CPAP * Return for follow up in 1 year, or sooner if concerns arise Counseling Topics: Weight loss health impact Prescriptions: Device supplies Follow up with Sleep Care in: 1 year Visit Type: In Office Time Spent with Patient (minutes): 23 Provider Statement: I spent 100% of the Face to Face Visit with the patient with greater than 50% spent counseling the patient and coordination of care.
[2023-04-22 14:44] VITALS: BP 146/84; O2SAT 98
== END 2023-04-22 14:09 | disposition home or self-care (01) ==
LOC: SC 14:08
PROVIDERS: ATTEND Nurse Practitioner Family
DX: G47.33 Obstructive sleep apnea (adult) (pediatric) (principal); E66.9 Obesity, unspecified; Z68.36 Body mass index [BMI] 36.0-36.9, adult
CPT/HCPCS: 99212; 99213

== ENCOUNTER 2023-11-09 08:00 | Outpatient (CLI) | payer OTHER ==
[2023-11-09 11:58] LABS: BASOPHILS % (AUTO) 0.7 %; EOSINOPHILS # (AUTO) 0.1 10^3/uL (0.0-0.7); EOSINOPHILS % (AUTO) 3.4 %; HCT - HEMATOCRIT 41.3 % (42.0-52.0); HGB - HEMOGLOBIN 13.7 g/dL (14.0-18.0); LYMPHOCYTES # (AUTO) 1.8 10^3/uL (1.5-3.5); LYMPHOCYTES % (AUTO) 43.8 %; MEAN CORPUSCULAR HGB CONC 33.2 g/dL (32.0-36.0); MEAN CORPUSCULAR VOLUME 84.5 fL (80.0-94.0); MEAN PLATELET VOLUME 12.7 fL (7.4-11.4); MONOCYTES # (AUTO) 0.5 10^3/uL (0.0-1.0); MONOCYTES % (AUTO) 11.3 %; NEUTROPHILS # (AUTO) 1.7 10^3/uL (1.5-6.6); NEUTROPHILS % (AUTO) 40.8 %; PLT - PLATELET COUNT 138 10^3/uL (130-450); RED BLOOD COUNT 4.89 10^6/uL (4.70-6.10); RED CELL DISTRIBUTION WIDTH 14.2 % (12.0-15.0); WHITE BLOOD COUNT 4.2 x10^3/uL (4.8-10.8)
[2023-11-09 12:09] LABS: BUN - BLOOD UREA NITROGEN 14 mg/dL (6-20); CALCIUM 9.9 mg/dL (8.5-10.3); CARBON DIOXIDE - CO2 29 mmol/L (21-32); CHLORIDE 107 mmol/L (101-111); CREATININE 1.2 mg/dL (0.6-1.3); CRP - C-REACTIVE PROTEIN < 0.5 mg/dL (<0.5); GFR - MDRD 80 (>89); GLUCOSE 100 mg/dL (74-104); POTASSIUM 3.8 mmol/L (3.5-4.5); SODIUM 140 mmol/L (135-145); URIC ACID 4.1 mg/dL (4.4-7.6)
--- NOTE | 2023-11-10 15:04 | XRAY Report ---
PROCEDURE: Finger(s) RT INDICATIONS: PAIN IN RIGHT THUMB TECHNIQUE: AP hand, 2 views of the first finger(s) acquired. COMPARISON: None FINDINGS: Bones: No fractures or dislocations. No suspicious bony lesions. Soft tissues: No suspicious soft tissue calcifications. IMPRESSION: No acute bony abnormalities Reviewed by: Trevor Melgar MD on 11/10/2023 2:03 PM AKDT Approved by: Trevor Melgar MD on 11/10/2023 2:03 PM AKDT Station ID: [id number]
== END 2023-11-09 08:15 | disposition home or self-care (01) ==
LOC: DI.N 08:00
PROVIDERS: ATTEND Physician Assistant Medical
DX: M79.644 Pain in right finger(s) (principal)
CPT/HCPCS: 36415; 80048; 84550; 85025; 86140